=== PATIENT | male | born 1950 | race Caucasian/White ===

== ENCOUNTER 2020-04-26 13:06 | Emergency (ER) | payer BC ==
[2020-04-26 13:23] VITALS: BP 151/89; PULSE 74; TEMP 98.2; BMI 27.1
[2020-04-26 14:31] LABS: BASO % 2.7 % (0-2.0); EOS % 9.5 % (0-4.5); HEMATOCRIT 41.7 % (35.4-49); HEMOGLOBIN 14.1 GM/dl (11.7-16.9); MCH 31.4 pg (25.7-33.7); MCHC 33.8 g/dl (32.0-35.9); MEAN CELL VOLUME 92.9 fl (80-96); MEAN PLT VOLUME 7.5 fl (7.5-11.1); MONO % 10.9 % (3.8-10.2); NEUT % 50.9 % (42.8-82.8); PLATELET COUNT 327 K/MM3 (134-434); RBC 4.49 M/mm3 (4.00-5.60); RDW 12.8 % (11.9-15.9)
[2020-04-26 14:39] LABS: ALBUMIN 4.3 g/dl (3.4-5.0); BILIRUBIN,TOTAL 1.1 mg/dl (0.2-1); CALCIUM 9.6 mg/dl (8.5-10); CREATININE 0.9 mg/dl (0.55-1.3); TOT PROT 6.6 g/dl (6.4-8.2)
[2020-04-26 15:51] LABS: N-TERMINAL BNP 127.7 pg/ml (5-125)
== END 2020-04-26 16:24 | disposition home or self-care (01) ==
LOC: FER 13:06
DX: R05 Cough (principal); R06.02 Shortness of breath; R07.9 Chest pain, unspecified; Z11.52 Encounter for screening for COVID-19
CPT/HCPCS: 36415; 71046-TC-FY; 80053; 82550; 82553; 83880; 84484; 85025; 93005; 99285-25; C9803; U0003

== ENCOUNTER 2022-02-01 17:23 | Inpatient (IN) | payer BC, OTHER ==
[2022-02-01 17:43] VITALS: BMI 26.6
[2022-02-01 18:28] LABS: HEMATOCRIT 43.1 % (35.4-49); HEMOGLOBIN 15.2 G/dL (11.7-16.9); MCH 32.4 pg (25.7-33.7); MCHC 35.4 g/dl (32.0-35.9); MEAN CELL VOLUME 91.7 fl (80-96); MEAN PLT VOLUME 7.1 fl (7.5-11.1); PLATELET COUNT 283.4 10^3/uL (134-434); RDW 13.7 % (11.9-15.9); WHITE BLOOD COUNT 8.7 10^3/uL (4.0-10.8)
[2022-02-01 18:35] LABS: ALBUMIN 4.2 g/dl (3.4-5.0); BILIRUBIN,TOTAL 1.1 mg/dl (0.2-1); CALCIUM 9.5 mg/dl (8.5-10); CREATININE 0.9 mg/dl (0.55-1.3); TOT PROT 6.6 g/dl (6.4-8.2)
[2022-02-01] MEDS ORDERED: ACETAMINOPHEN 325 MG TABLET (FP) PO PRN (21:02)
[2022-02-01] MEDS ORDERED: DOCUSATE SODIUM 100 MG CAPSULE (FP) PO PRN (21:02)
[2022-02-01] MEDS ORDERED: ALBUTEROL SO4 HFA INHALER IH PRN (21:07)
[2022-02-01] MEDS: INSULIN SLIDING SCALE (NOVOLOG) 1 VIAL SQ SCH (22:37)
[2022-02-02] MEDS ORDERED: LEVOTHYROXINE NA 125 MCG TABLET (FP) PO SCH (07:00)
[2022-02-02] MEDS: INSULIN SLIDING SCALE (NOVOLOG) 1 VIAL SQ SCH ×2 (07:15→13:07)
[2022-02-02] MEDS ORDERED: guaiFENesin/D-M SUGAR-FREE/ACLHOL-FREE 118 ML BOTTLE PO PRN (08:16)
[2022-02-02 08:30] LABS: HEMATOCRIT 42.3 % (35.4-49); HEMOGLOBIN 14.5 G/dL (11.7-16.9); MCH 31.8 pg (25.7-33.7); MCHC 34.2 g/dl (32.0-35.9); MEAN CELL VOLUME 92.9 fl (80-96); MEAN PLT VOLUME 7.6 fl (7.5-11.1); RBC 4.55 10^6/uL (4.00-5.60); RDW 14.4 % (11.9-15.9); WHITE BLOOD COUNT 7.9 10^3/uL (4.0-10.8)
[2022-02-02 08:36] LABS: CALCIUM 9.4 mg/dl (8.5-10); CREATININE 0.8 mg/dl (0.55-1.3); MAGNESIUM 1.9 mg/dL (1.8-2.4)
[2022-02-02] MEDS ORDERED: ENOXAPARIN NA (PORCINE) 40 MG/0.4 ML DISP.SYRIN SQ SCH (10:00)
[2022-02-02] MEDS ORDERED: BUDESONIDE/FORMETEROL FUMARATE 80/4.5 mcg INHALER IH SCH (10:00)
[2022-02-02 15:01] VITALS: BP 138/72; PULSE 81; RESP 18; TEMP 98.3
== END 2022-02-02 18:16 | disposition home or self-care (01) | DRG 951 ==
LOC: FER 17:23 → FM/S 18:40
PROVIDERS: ADMIT Internal Medicine; ATTEND Family Medicine
DX: Z22.7 Latent tuberculosis (principal); N40.0 Benign prostatic hyperplasia without lower urinary tract symptoms; E03.9 Hypothyroidism, unspecified; Z79.4 Long term (current) use of insulin; E11.649 Type 2 diabetes mellitus with hypoglycemia without coma; R93.89 Abnormal findings on diagnostic imaging of other specified body structures; Z98.890 Other specified postprocedural states
CPT/HCPCS: 0241U-QW; 36415; 80048; 80053; 82962; 83735; 83880; 84443; 84484; 85027; 93005; 99285-25